=== PATIENT | female | born 1945 | race Caucasian/White ===

== ENCOUNTER 2018-11-29 12:46 | Inpatient (IN) | payer OTHER, SELFPAY ==
[2018-11-17 13:32] VITALS: BMI 26.4
[2018-11-29] VITALS (19 sets, daily range): BP systolic 82–134; BP diastolic 45–80; PULSE 70–91; RESP 12–20; TEMP 36.1–36.6; O2SAT 96–100; BMI 26.4; BMI 29.9
--- NOTE | 2018-11-29 | DI.RAD.S_ITS ---
PROCEDURE: XR PELVIS 1-2V INDICATIONS: INTEROPERATIVE RIGHT HIP TECHNIQUE: 1 view of the lower pelvis acquired. COMPARISON: None. FINDINGS: Bones: Patient is status post right hip arthroplasty, with hardware components in expected positions. The hip joint appears congruent. The visualized bony structures appear intact. Soft tissues: Overlying postoperative changes are noted. No suspicious soft tissue densities. IMPRESSION: Normal alignment after right total hip arthroplasty. Dictated by: Albert Garduno M.D. on 11/29/2018 at 17:02 Approved by: Albert Garduno M.D. on 11/29/2018 at 17:03
--- NOTE | 2018-11-29 | DI.RAD.S_ITS ---
PROCEDURE: XR PELVIS 1-2V INDICATIONS: POST OPERATIVE RIGHT HIP TECHNIQUE: 1 view of the lower pelvis acquired. COMPARISON: [facility], , XR PELVIS 1-2V, 11/29/2018, 14:37. FINDINGS: Bones: Patient is status post right hip arthroplasty, with hardware components in expected positions. The hip joint appears congruent. The visualized bony structures appear intact. Moderately severe osteoarthritis is present at the left hip. Soft tissues: Overlying postoperative changes are noted. No suspicious soft tissue densities. IMPRESSION: Normal anatomic alignment established after right total hip arthroplasty. Moderately severe left hip joint osteoarthritis. Dictated by: Albert Garduno M.D. on 11/29/2018 at 17:03 Approved by: Albert Garduno M.D. on 11/29/2018 at 17:04
--- NOTE | 2018-11-29 13:15 | PM.PREOP ---
Pre-operative Note Interval Note History & Physical reviewed/Exam performed by Physician: Yes Changes to H&P: No
[2018-11-29] MEDS: LACTATED RINGERS 1,000 ML 42 ML IV ×3 (13:18→16:51)
[2018-11-29] MEDS: ACETAMINOPHEN 325 MG TABLET 975 MG PO (13:18)
[2018-11-29] MEDS: PREGABALIN 75 MG CAPSULE PO (13:19)
[2018-11-29] MEDS: CELECOXIB 200 MG CAPSULE PO (13:19)
[2018-11-29] MEDS: CEFAZOLIN 1 GM VIAL IV (13:39)
[2018-11-29] MEDS: TRANEXAMIC ACID 1,000 MG VIAL 2 MG INJ ×2 (14:03→16:05)
--- NOTE | 2018-11-29 14:22 | SUR.OPER ---
Head on pillow. Supine on hanatable with bilateral legs secured in traction. right arm across chest, secured with tape over sheet Left arm at side on padded armoard at < 90 degrees
[2018-11-29] MEDS: BUPIVACAINE 0.25% W/ EPI VIAL 50 ML INJ (14:28)
--- NOTE | 2018-11-29 16:48 | P.OP_ITS ---
Operative Date/Time/Diagnoses Date of procedure: 11/29/18 Time of procedure: 16:44 Pre-op diagnosis: Right hip degenerative joint disease Post-op diagnosis: same Procedure & Clinicians Procedure: Right total hip arthroplasty, direct anterior approach (CPT code 80704 with geriatric assistant) Same procedure as scheduled: Yes Indications: Patient is an 73-year-old female with severe right hip DJD. The patient has pain with activities and at rest, limited ambulation and activity tolerance, difficulties with ADLs, and failure of conservative treatment. We have discussed the nature of condition, treatment options, risks and benefits, and patient elects to proceed with direct anterior approach total hip arthroplasty and gives informed consent. Surgeon: Ulisses Proctor Certified Pharmacy Technician: Blas Wallace Anesthesia Type: General and Spinal Operative Notes Closure Type: primary Specimen(s): none sent Prosthetic devices, grafts, tissues, transplants, or devices: Acetabulum: Boo and Nephew R3 acetabular component size 48 mm, 30 mm acetabular screw Femoral component: Boo and Nephew Anthology stem size 3 with standard offset Femoral head: 32 mm + 0 Oxinium Estimated Blood Loss (mL): 200 Blood products transfused: none Procedure in detail: Patient was brought to the operating room and after satisfactory induction of a spinal and general anesthetic as well as administration of intravenous antibiotics was placed supine on the [place] table. Both feet and ankles were wrapped and Webril and Coban and placed in the boots. The boots were then secured to the leg braswell and the lower end of the table was removed. Right hip area and lower extremity was then prepped and draped in the usual sterile fashion, and the 1st dose of tranexamic acid was administered. Skin incision made from just distal and lateral to the ASIS down distally toward the greater trochanter. This was carried sharply through the skin and subcutaneous tissue down to the fascia overlying the TFL. Fascia was then incised longitudinally and the muscle belly was stripped off the underside of the fascia and the intermuscular interval was entered using the finger for dissection. Retractors then placed the circumflex vessels were identified and cauterized. The capsule was then incised in a T-type fashion distally and retracted. Retractors then placed on the medial and lateral femoral neck and the cutting level identified with fluoroscopic assistance. Femoral neck cut then made and the femoral head was removed. Leg was positioned to minimize interference in the approach the acetabulum and acetabular retractors were placed. Acetabular labrum and lateral capsule were then excised and the acetabulum was sequentially reamed to 47 mm with fluoroscopic guidance. Once the reaming appeared satisfactory a 47 mm trial component was inserted and had excellent position and fixation. A 48 mm Boo and Nephew R3 acetabular component was selected and inserted under fluoroscopic guidance with satisfactory position and fixation achieved. A single superior posterior screw was then inserted, followed by placement of a non lipped liner. The foot of the table was then dropped and the leg was maximally externally rotated and adducted providing excellent position in visualization of the proximal femur. During this maneuver further posterior release was performed. Lateral femoral neck was entered using a box osteotome and canal finer was then placed followed by the initial ?chili pepper? broach. AP and lateral fluoroscopic images were taken with this in place to assure satisfactory position and alignment. Once this was confirmed sequential broaching to a 3 was performed with excellent position and fixation with the 3 broach. A trial reduction was performed yielding excellent leg length, offset, and size of the femoral implant. The broach was then removed and a size 3 anthology femoral component was inserted and impacted into position with excellent position and fixation achieved. Repeat fluoroscopic images confirmed satisfactory size and positioning as well as leg length. The hip was dislocated and the trial femoral head was replaced with a 32 mm +0 Oxinium head. The wound was copiously irrigated and the periarticular tissues were infiltrated with Marcaine. 2nd dose of tranexamic acid was administered. The fascia of the tensor fascia laureano was then repaired using a running 1 Vicryl. Subcutaneous layer closed with 2 O Vicryl and the skin closed with a running locking suture. Sterile dressings applied anesthetic terminated. Complications: none Condition: stable Disposition: PACU Plan for aftercare: Patient will be admitted to the acute care [facility], and anticipate discharge on postop day 1 or 2 with follow-up in office in 10-14 days. Outpatient physical therapy will be arranged and patient will continue to observe posterior hip precautions. Patient will continue use of postoperative Lovenox for 10 days postop.
--- NOTE | 2018-11-29 17:06 | SUR.PHASEI ---
pt awake and alert. Denies any complaints. dressing dry and intact. Blood pressure remains in the 90/47. pt states she feels okay and currently denies nausea.
--- NOTE | 2018-11-29 17:44 | SUR.PHASEI ---
pt's blood pressure was 122/65 when pt went to floor.
[2018-11-29] MEDS: LACTATED RINGERS 1,000 ML 125 ML IV (18:06)
[2018-11-29] MEDS: ONDANSETRON 4 MG/2 ML INJ IV (18:06)
[2018-11-29] MEDS: METOCLOPRAMIDE HCL 10 MG TABLET PO (18:31)
[2018-11-29] MEDS: HYDROCODONE/ACET 5/325 TABLET 1 TAB PO (19:00)
--- NOTE | 2018-11-29 22:52 | PC.NURSE ---
Addendum entered by Aysha Ye R.N. 11/29/18 23:33: Able to void 50 ml urine, said it only came when I sneezed. Transferred back to bed. Bladder scan = 354 ml. Report given to Emeli MCDONALD RN and she is aware of attempt to void & bladder scan result. Original Note: Post-op notes: Madiha brought from PACU around 1730, via bed, by DELI CUTTER SLICER's. Pt awake, oriented, nauseated and had small amt of emesis immediately after transfered. Linens changed, IV zofran given. Pt reported nausea relieved for a little while but then started having dry heaves. PO Reglan given, and since then patient has had no further nausea or emesis. Did report right hip/thigh pain 5/10 and medicated with 1 tab [place], given with pudding cup to help prevent further nausea. Since then patient has been watching TV and dozing. R hip with aquacel CDI. She does report leg feels a little numb still but wiggling toes, actively doing foot pumps and has strong pedal pulses. Wearing margo calf SCD's. VS are stable, BP on the low side but stable. 2230: Face pale, she did report lightheadedness when first transferred her to BS, good sensation & mvmt of RLE. No void since before surgery. Just now we transferred her to [facility] so she could attempt void. If no void will perform bladder scan. Full linen change done.
[2018-11-29] MEDS: CEFAZOLIN 2 GM/100 ML FROZ.PIGGY IV (23:10)
[2018-11-30] VITALS (8 sets, daily range): BP systolic 66–116; BP diastolic 34–67; PULSE 83–123; RESP 16–20; TEMP 36.1–38.4; O2SAT 92–97
[2018-11-30] MEDS: hydrOXYzine pamoate 25 MG CAPSULE PO (00:25)
[2018-11-30] MEDS: HYDROCODONE/ACET 5/325 TABLET 1 TAB PO ×4 (00:25→18:11)
[2018-11-30] MEDS: LACTATED RINGERS 1,000 ML 125 ML IV ×2 (04:21→19:20)
[2018-11-30 05:59] LABS: Hematocrit 26.3 % (36-46); Hemoglobin 8.9 g/dL (12.0-16.0)
--- NOTE | 2018-11-30 07:26 | PM.PNPO.1 ---
Subjective Date Patient Seen: 11/30/18 Interval history: Patient seen bed side status post right anterior total hip arthroplasty with Dr. Proctor on 11/29/2018. Patient is postop day 1. Dr. Proctor saw her this morning and patient was a little lightheaded. Currently, she is feeling better. She did have 2 episodes of orthostatic hypotension today. Fluids are currently running. Exam Vital Signs (past 8 hours): - 11/30/18 00:28 Temperature 97 F L Pulse Rate 83 Respiratory Rate 16 Blood Pressure 97/67 Pulse Oximetry 96 Oxygen Delivery Method Room Air Narrative Exam Narrative: Well-developed well-nourished no acute distress alert oriented x3. Dressing clean dry and intact. Neurovascularly intact bilateral lower extremities. Objective Labs Result Diagrams: 11/30/18 15:28 Labs: Laboratory Results - last 24 hr 11/30/18 05:06 Hgb 8.9 L Hct 26.3 L Assessment & Plan Post-op Postoperative Procedures Operation Date: 11/29/18 14:15 Actual Procedures Side Surgeon p Total Hip Arthroplasty-Anterior Right Ulisses Proctor MD 1. POD #1 s/p above procedure-finishing bolus, probable d/c tomorrow if pressure/labs stable and works well with therapy. 2. Postoperative anemia due to acute blood loss-continue fluids, ferrous sulfate and vitamin c. Labs appear stable at this time. Recheck h/h in AM.. Quality VTE Deep Vein Thrombosis/Pulmonary Embolism Present on Admission: No
[2018-11-30] MEDS: CEFAZOLIN 2 GM/100 ML FROZ.PIGGY IV (07:32)
[2018-11-30] MEDS: SODIUM CHLORIDE 0.9% 1,000 ML 100 ML IV (07:32)
--- NOTE | 2018-11-30 07:52 | PC.NURSE ---
Addendum entered by Bernadine Galvan R.N. 11/30/18 15:41: received a call back from dr Proctor, orders for stat H&H, give 250ml NS bolus over 1hour after labs drawn, and call Dr Proctor back with H&H results. Orders placed and Evening shift RN passed on. Original Note: Addendum entered by Bernadine Galvan R.N. 11/30/18 14:39: pt worked with PT and sitting b/p 116/49 standing 66/34 and laying back 110/58, pt reporst she did feel dizzy but that it is not as bad a yesterday, denies any further dizziness while sitting up in chair. paged dr proctor at 1428 awaiting call back Original Note: Addendum entered by Bernadine Galvan R.N. 11/30/18 13:54: pt got up and voided on BSC reports slight dizziness but continues to improve up to chair at bed visiting with family. Original Note: Addendum entered by Bernadine Galvan R.N. 11/30/18 11:51: pt up to BSC with therapy, noted to feel slightly dizzy when sitting up was assisted back to bed and b/p 79/44 p 126 states she felt better then she did when she got up yesterday. after a few min. laying flat b/p 102/48 p 114 Original Note: Day shift Pt is a&o able to make needs known. c/o pain to right hip 4/10 medicated per emar. Aqucel dressing to right hip is CDI. Call light within reach.
[2018-11-30] MEDS: ASCORBIC ACID 500 MG TABLET PO (09:46)
[2018-11-30] MEDS: ENOXAPARIN 40 MG/0.4 ML SYRINGE SUBCUT (09:46)
[2018-11-30] MEDS: FERROUS SULFATE 325 MG TABLET PO (09:46)
--- NOTE | 2018-11-30 10:25 | PT.IIE ---
Current Diagnoses Unilateral primary osteoarthritis, right hip (11/29/18) Surgery Performed Operation Date: 11/29/18 14:15 Actual Procedures p Total Hip Arthroplasty-Anterior(Right) - Ulisses Proctor MD Surgical History (Last Updated 11/17/18 @ 14:09 by Stephanie Carroll, RN) History of arthroscopy of both knees (Acute) History of colonoscopy (Acute) Medical History (Last Updated 11/17/18 @ 13:46 by Stephanie Carroll RN) HTN (hypertension) (Acute) Hypercholesterolemia (Acute) Physical Therapy Inpatient Evaluation/Re-Eval M1 PT/OT-IP Prior Functional Status Start: 11/30/18 12:51 Freq: NEEDED Status: Active Protocol: Document 11/30/18 10:25 AB (Rec: 11/30/18 13:08 AB [id number]) Medical Review Prior Functional Status Medical History Reviewed Yes Communication able to make needs known Mobility and Gait pt stated that she is independent with all mobilities and ambulation without AD Social History Household Members none Living Arrangements House Number of Floors (Floors) Two Floors Number of Stairs To Enter/Railing? has 2 steps without rails to enter has 10 steps with R rail ascending to 2nd level bedroom Home Environment Walk in Shower Home Equipment Straight Cane Shower Seat with Backrest Additional Social History Comment pt has a standard walker pt stated that her nurse friend will stay with her for ~ 3 days to help her and afterwards, her daughter/ family will come in to stay and visit her. M2 PT-IP Current Condition Start: 11/30/18 12:51 Freq: NEEDED Status: Active Protocol: Document 11/30/18 10:25 AB (Rec: 11/30/18 13:08 AB [email or web address]) Physical Therapy Current Condition Current Condition Evaluation Date 11/30/18 Treatment Diagnosis s/p R ANDREI anterior approach; difficulty in walking Onset Date 11/29/18 Precautions Anterior Hip Precautions No Hip Extension No Hip External Rotation Other Precautions falls Weight Bearing Status Weight Bearing Status Weight Bear as Tolerated M3 PT-IP Subjective Start: 11/30/18 12:51 Freq: NEEDED Status: Active Protocol: Document 11/30/18 10:25 AB (Rec: 11/30/18 13:08 AB [email or web address]) Subjective Physical Therapy Visit Type Type Initial Evaluation Visit Start Time 10:25 Visit Stop Time 11:16 Total Visit Minutes 51 Number of DAYCARE ASSISTANT Visits 0 Physical Therapy Visit Comments Patient Comments pt agreeable to do PT Therapy Pain Assessment Pain When Pain Assessed At Rest Pain Present Pain Present Pain Reported Location Right Hip Intensity 3 Scale Used Numeric (1 - 10) Pain Management Techniques Timing of Activity with Medications M4 PT-IP Mobility and Gait Start: 11/30/18 12:51 Freq: NEEDED Status: Active Protocol: Document 11/30/18 10:25 AB (Rec: 11/30/18 13:08 [email or web address]) PT-Bed Mobility Assessment Supine to Sit Supine to Sit Maximum Assistance 1 Person Assistance Sit to Supine Sit to Supine Maximum Assistance 1 Person Assistance PT-Transfer Assessment Sit to and From Stand Sit to and from Stand Moderate Assistance Maximum Assistance 1 Person Assistance Equipment Transfer Assistive Device Gait Belt Orthotic/Prosthetic Devices or Brace: No Transfers Transfer Destination Bedside Commode Transfer Technique Stand Step Pivot Transfer Ability Level of Assist Moderate Assistance 1 Person Assistance Comments Mobility Comments BP monitored: supine prior to mobilization: 107/75. pt completed supine to sit max A and max cues. BP sitting on EOB: 76/37. BP checed again: 91/53. pt with seated rest break and BP checked again: 96 /52. pt requested to use the toilet. pt completed sit to stand mod to max A and max cues with 3 attempts needed to complete tasks. pt completed stand step transfer to bedside commode using FWW mod A and max cues. BP checked again sitting on commode: 79/ 44. pt assisted back to bed requiring mod A for transfer using FWW. pt required max A and max cues for bed mobility sit to supine. BP in supine: 102/48. nurse aware. Gait Assessment Comments Gait Comments was able to take steps during transfer PT-Balance Assessment Sitting Balance and Reactions Static Sitting Balance Ability Good Dynamic Sitting Balance Ability Good Standing Balance and Reactions Static Standing Balance Ability Fair Dynamic Standing Balance Ability Fair Device Used FWW M5 PT-IP Objective Assessments Start: 11/30/18 12:51 Freq: NEEDED Status: Active Protocol: Document 11/30/18 10:25 AB (Rec: 11/30/18 13:08 [email or web address]) Orientation Orientation/Cognition Level of Alertness Alert Orientation Name Age Birthday Month Date Year Day of Week Place Situation Safety Awareness Decreased Safety Awareness Memory Description Short Term Impaired Custodial Impaired Gross Range of Motion Lower Extremity ROM Assessment Right Impaired Strength Lower Extremity Strength Assessment Right Impaired Knee 3-/5 M6 PT-IP Treatment Start: 11/30/18 12:51 Freq: NEEDED Status: Active Protocol: Document 11/30/18 10:25 AB (Rec: 11/30/18 13:08 AB [email or web address]) Physical Therapy Treatment Exercises Exercises Heel Slides Education Education Provided Precautions Weight Bearing Status Post-Op Packet Safety M7 PT-IP Assessment and Plan Start: 11/30/18 12:51 Freq: NEEDED Status: Active Protocol: Document 11/30/18 10:25 AB (Rec: 11/30/18 13:08 AB [email or web address]) PT Summary Assessment and Plan Potential Rehabilitation Potential Fair Summary Impairments Pain ROM Strength Balance Coordination Sensation Tone Cognition Bed Mobility Transfers Gait Activity Tolerance Assessment Summary pt was not able to tolerate much activity this morning with decrease in BP noted with upright activities. will continue to assess. Goals Bed Mobility Goal Standby Assistance Transfer Goal Standby Assistance Front Wheeled Walker Gait Goal Standby Assistance Front Wheel Walker Gait Distance 200 Other Goals up/down 2 steps without rails SBA up/down 10 steps with R rail ascending SBA Treatment Plan Physical Therapy Treatment Plan Bed Mobility Training Transfer Training Gait Training Therapeutic Exercise Balance Retraining Post Op Education Discharge Planning Hot or Cold Pack Neuromuscular Re-ed Coordination Retraining Manual Therapy Recommendations To Nursing Amount of Assist Needed 1 Person Assist Discharge Recommendations PT Discharge Recommendations Home with Assistance SNF Rehab Outpatient PT Other Discharge Recommendations d/c plan dependin on progress: SNF vs home with assist Equipment Needed for Home Before FWW Discharge
--- NOTE | 2018-11-30 11:25 | CM.DANOTE ---
DCP/Assessment: Reviewed chart. Patient is a 73jyr old female admitted to [facility] for right ANDREI performed on 11-29-[address] Proctor. PCP not listed. Primary payor is 1)[facility]. Met with patient explained CM/SW role. Patient alert and oriented at time of visit. Patient reports that she plans to go home when medically stable. Patient reports that she has all needed DME. Therapy evaluation pending. Initially, patient thought she would discharge today however, due to low BP it was decided by Ortho team that patient would remain hospitalized tonight. Patient aware and agreeable. Patient reports that she resides alone but that she has friend/Rupal coming to help when she goes home. Patient's daughter/Aysha will also be available if needed. At this time anticipate patient to go home when medically stable. CM team to follow closely if needs arise. P: Home hopefully tomorrow 12-01-18. DEB Art Discharge Planning/Care Management CM Discharge Assessment Start: 11/30/18 11:23 Freq: Status: Active Protocol: Document 11/30/18 11:24 KJS (Rec: 11/30/18 11:25 KJS [id number]) Discharge Planning Assessment Assigned Rail Maintenance Worker DEB Art Contact Information Aysha Juan (daughter) [phone] Advance Directives? Yes Advance Directives on File Yes: brought in today History Provided By Patient Medical Record Has Patient been admitted in last 30 No days? Prior Living Arrangements House Household Members none Type of transporation used prior to Drives own vehicle admit Independent with ADL's Yes Is patient alert and oriented? Yes Caregiver for Another No DME Already Rented / Owned FWW / Walker Patient/Family Preference OP PT Therapy Barriers to Discharge No Discharge Plan Home Transportation Arrangement Family to provide transport when patient medically stable. Referrals Initiated None needed Whiteboard Updated in Patient Room with Yes name and ext. # of Rail Maintenance Worker Review Status In Process Please Provide Date Initial DC 11/30/18 Assessment Was Performed Next Review Type Continued Stay Review Pre-Anesthesia Assessment Start: 11/17/18 13:32 Freq: Status: Complete Protocol: Document 11/17/18 13:32 CAB (Rec: 11/17/18 14:24 CAB [id number]) Pre-Anesthesia Assessment Patient Information Reviewed Via Phone Assessment Assessment Completed With Patient Diagnostic Results BMP/CMP CBC EKG Primary Care Provider Reagan Benitez Seen Specialist in Last 12 Months Yes Specialist Seen Opthamologist/Technical Support Associate Orthopedist Primary Language Japanese White Shoe Examiner Required No Height 154.94 cm Weight 63.503 kg Body Mass Index (BMI) 26.4 Hearing Ability Normal Visual Assist Magnifying Glass Dentition Type Teeth, Natural Present Barriers to Learning None Other Aids No Hx Anesthesia Reactions No Hx Family Anesthesia Reaction No Hx Malignant Hyperthermia No Hx Blood Transfusions No Anesthesia Review Requested No Client Technologies Specialist No alcohol intake current alcohol intake frequency a few times a month Smoking Status Never smoker Substance Use Type does not use Pain Present Pain Reported Musculoskeletal Symptoms Abnormal Gait Difficulty Walking Joint Pain History of Falling (Recent or History of No ) Patient is completely paralyzed or No completely immobile Mental Status Oriented to own ability Is patient on oxygen? No Does patient have SUAREZ/SOB No Hx Sleep Apnea No Currently Taking a Beta Darcie Yes: Atenolol Can You Climb a Flight of Stairs Without Yes SOB Hx Chest Pain No Hx SOB No Hx Syncope or Dizziness No Anti-Coagulant Therapy No Has a Bookmaker Map No Cardiac Testing No Hx Pacemaker/ICD No Pacemaker Rep Required? No Cardiac Clearance Received Not Applicable Diet Type At Home Regular dysphagia No Bladder Pattern Nocturia Urinary Catheter Present No Hx Urinary Self Catheterization No Diabetes No Patient No Lactating No Hx Drug Resistant Organism No Presence of External or Internal Medical No Devices Have you traveled outside the [facility] States in the last 30 days? Marital Status / Lives With none Prior Living Arrangements House Number of Floors (Floors) 3 or More Floors Support System Child/Children Friend(s) Does the Patient Have Assistance After Yes Surgery Patient Discharge Plan Description Return Home Feels Safe in Current Environment Yes Been Physically Hurt or Threatened By a No Person in Current Environment Do you have thoughts of harming yourself None or others? Are you currently considering suicide? No Do you have a plan to hurt yourself or No Plan others? Do You Have Any Spiritual Beliefs That No May Affect Your HC Choices? Do You Have Any Cultural Practices That No May Affect Your HC Choices? Comment Presby Who Can We Speak to About Patient's Care Family, friends Identifying Code for Release of Patient Declines to issue Information Health Care Proxy/Next of Kin Aysha (daughter) Health Care Proxy Phone Number Pt will update dos Emergency Contact Name Mahnaz (daughter) Emergency Contact Phone Number Pt will update dos Advance Directives? Yes Advance Directives on File No Requested Patient Bring Advanced Yes Directives DOS Power of Shop Tailor Pt unsure PAC Instructions Do not shave/clip surgical site Durable medical equipment Medications to take/avoid Nasal antibiotic No ETOH/petroleum product on skin DOS NPO Post-op transportation Pre-surgical wash Sturdy shoes/comfortable clothes Do not bring valuables and remove jewelry
--- NOTE | 2018-11-30 15:02 | PT.IPTN ---
Current Diagnoses Unilateral primary osteoarthritis, right hip (11/29/18) Surgery Performed Operation Date: 11/29/18 14:15 Actual Procedures p Total Hip Arthroplasty-Anterior(Right) - Ulisses Proctor MD Physical Therapy Treatment Note M2 PT-IP Current Condition Start: 11/30/18 12:51 Freq: NEEDED Status: Active Protocol: Document 11/30/18 10:25 AB (Rec: 11/30/18 13:08 AB [id number]) Physical Therapy Current Condition Current Condition Evaluation Date 11/30/18 Treatment Diagnosis s/p R ANDREI anterior approach; difficulty in walking Onset Date 11/29/18 Precautions Anterior Hip Precautions No Hip Extension No Hip External Rotation Other Precautions falls Weight Bearing Status Weight Bearing Status Weight Bear as Tolerated M3 PT-IP Subjective Start: 11/30/18 12:51 Freq: NEEDED Status: Active Protocol: Document 11/30/18 13:52 CLB (Rec: 11/30/18 15:02 CLB [id number]) Subjective Physical Therapy Visit Type Type Treatment Note Visit Start Time 13:52 Visit Stop Time 14:17 Total Visit Minutes 25 Number of 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 Visits 1 Physical Therapy Visit Comments Patient Comments pt agreeable to do PT Patient Goals walk Therapy Pain Assessment Pain When Pain Assessed At Rest Pain Present Pain Present Pain Reported Location Right Hip Intensity 3 Scale Used Numeric (1 - 10) Pain Management Techniques Timing of Activity with Medications M4 PT-IP Mobility and Gait Start: 11/30/18 12:51 Freq: NEEDED Status: Active Protocol: Document 11/30/18 13:52 CLB (Rec: 11/30/18 15:02 CLB [id number]) PT-Transfer Assessment Sit to and From Stand Sit to and from Stand Minimal Assistance 1 Person Assistance Use of Upper Extremities Equipment Transfer Assistive Device Gait Belt Front Wheeled Walker Transfers Transfer Destination Chair Transfer Ability Level of Assist Minimal Assistance 1 Person Assistance Use of Upper Extremities Comments Mobility Comments BP monitored: reclined in chair 116/49 with no c/o dizziness, standing 66/34, pt returned to reclined position, BP in supine 110/58. RN notified. 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 Impaired Gross Range of Motion Lower Extremity ROM Assessment Right Impaired Strength Lower Extremity Strength Assessment Right Impaired Knee 3-/5 M6 PT-IP Treatment Start: 11/30/18 12:51 Freq: NEEDED Status: Active Protocol: Document 11/30/18 13:52 CLB (Rec: 11/30/18 15:02 CLB [id number]) Physical Therapy Treatment Exercises Exercises Ankle Pumps Gluteal Sets Quad Sets Heel Slides Education Education Provided Precautions Weight Bearing Status Post-Op Packet Safety M7 PT-IP Assessment and Plan Start: 11/30/18 12:51 Freq: NEEDED Status: Active Protocol: Document 11/30/18 13:52 CLB (Rec: 11/30/18 15:02 CLB [id number]) PT Summary Assessment and Plan Summary Impairments Pain ROM Strength Balance Coordination Sensation Tone Cognition Bed Mobility Transfers Gait Activity Tolerance Assessment Summary Pt continues to have have drop in BP in standing and is unable to ambulate at this time. Goals Bed Mobility Goal Standby Assistance Transfer Goal Standby Assistance Front Wheeled Walker Gait Goal Standby Assistance Front Wheel Walker Gait Distance 200 Other Goals up/down 2 steps without rails SBA up/down 10 steps with R rail ascending SBA Days to Meet Goals 5 Frequency of Treatment Frequency Of Treatment Twice a Day Treatment Plan Physical Therapy Treatment Plan Bed Mobility Training Transfer Training Gait Training Therapeutic Exercise Balance Retraining Post Op Education Discharge Planning Hot or Cold Pack Neuromuscular Re-ed Coordination Retraining Manual Therapy Recommendations To Nursing Amount of Assist Needed 1 Person Assist Discharge Recommendations PT Discharge Recommendations Home with Assistance Home Health SNF Rehab Outpatient PT Other Discharge Recommendations Home with assist and OPPT vs HH vs SNF Rehab daughter stated that HH may be a good option for pt due to living alone. Equipment Needed for Home Before FWW Discharge
[2018-11-30 15:37] LABS: Hematocrit 28.3 % (36-46); Hemoglobin 9.2 g/dL (12.0-16.0)
--- NOTE | 2018-11-30 16:14 | P.PN_ITS ---
Subjective Date Patient Seen: 11/30/18 Interval history: Patient seen bed side status post right anterior total hip arthroplasty with Dr. Proctor on 11/29/2018. Patient is postop day 1. Dr. Proctor saw her this morning and patient was a little lightheaded. Currently, she is feeling better. She did have 2 episodes of orthostatic hypotension today. Fluids are currently running. Exam Vital Signs (past 8 hours): - 11/30/18 00:28 Temperature 97 F L Pulse Rate 83 Respiratory Rate 16 Blood Pressure 97/67 Pulse Oximetry 96 Oxygen Delivery Method Room Air Narrative Exam Narrative: Well-developed well-nourished no acute distress alert oriented x3. Dressing clean dry and intact. Neurovascularly intact bilateral lower extremities. Objective Labs Result Diagrams: 11/30/18 15:28 Labs: Laboratory Results - last 24 hr 11/30/18 05:06 Hgb 8.9 L Hct 26.3 L Assessment & Plan Post-op Postoperative Procedures Operation Date: 11/29/18 14:15 Actual Procedures Side Surgeon p Total Hip Arthroplasty-Anterior Right Ulisses Proctor MD 1. POD #1 s/p above procedure-finishing bolus, probable d/c tomorrow if pres sure/labs stable and works well with therapy. 2. Postoperative anemia due to acute blood loss-continue fluids, ferrous sulfate and vitamin c. Labs appear stable at this time. Recheck h/h in AM.. Quality VTE Deep Vein Thrombosis/Pulmonary Embolism Present on Admission: No
[2018-11-30] MEDS: SODIUM CHLORIDE 0.9% 250 ML IV (16:18)
--- NOTE | 2018-11-30 22:08 | PM.CN ---
History of Present Illness Date Patient Seen: 11/30/18 Time Patient Seen: 21:45 Chief complaint: [id number] Right Total Hip ArthoplastyCOPAY $720.00 Reason for consult: Orthostatic hypotension Narrative: The patient is a 73 year old female with PMH of HTN, dyslipidemia, and osteoarthritis. On 11/29/2018 patient underwent an elective right hip arthroplasty for OA of right hip and pain / debility no longer amenable to non-invasive interventions. POD #1. Early in day patient was getting out of bed in found herself to feel lightheaded. Associated symptoms include visual blurring, generalized weakness, nausea and an episode of vomiting (earlier in the day). At time of the interview patient reported feeling well and free of dizziness, lightheadedness, nausea or vomiting. Also, has not experienced headache, chest pain, dizziness, palpitations, abdominal pain, dysuria, and blood loss in urine or stool. Vital signs obtain at that time of initial complaints with findings consistent for orthostasis. Consequently, patient received a 250 ml IVF bolus. She was started On maintenance IVF. [facility] Medical History HTN (hypertension) (Acute) Hypercholesterolemia (Acute) Surgical History History of arthroscopy of both knees (Acute) History of colonoscopy (Acute) Social History household members: none Smoking Status: Never smoker alcohol intake: current Social History household members: none Smoking Status: Never smoker alcohol intake: current Meds Home Medications Medication Instructions Recorded Confirmed Type atenolol 25 mg PO BEDTIME 11/17/18 11/29/18 History atorvastatin 10 mg PO BEDTIME 11/17/18 11/29/18 History Allergies Allergy/AdvReac Type Severity Reaction Status Date / Time No Known Drug Allergies Allergy Verified 11/29/18 13:20 Review of Systems Review of Systems All systems reviewed & are unremarkable except as noted in HPI and below Exam Vital Signs (past 8 hours): - 11/30/18 14:27 11/30/18 14:28 11/30/18 14:53 Temperature Pulse Rate 123 H Respiratory Rate 16 Blood Pressure Blood Pressure [Orthostatic Sitting] 116/49 L Blood Pressure [Orthostatic Standing] 66/34 L 110/58 L Pulse Oximetry 92 11/30/18 15:32 11/30/18 20:22 Temperature 99.2 F 101.2 F H Pulse Rate 116 H 118 H Respiratory Rate 20 17 Blood Pressure 114/48 L 105/57 L Blood Pressure [Orthostatic Sitting] Blood Pressure [Orthostatic Standing] Pulse Oximetry 94 92 Oxygen Delivery Method Room Air Narrative Exam Narrative: Constitutional: NAD Neurologic: AOx3, no focal neurological deficits, GCS 15 Head: NC, AT Eyes: pupils equal, round and reactive; extraocular movements intact Ears: external ears normal, Nose: external nose normal, no epistaxis Throat: DRY MM, oropharynx w/o exudate Neck: no masses, lymphadenopathy, or JVD Chest / Respiratory: equal chest rise, diminished bases, no tachypnea or dyspnea, on room air Heart / CV: S1S2, no murmur, tachycardic HR 122 apical pulse Abdomen / GI: round, NT, ND, hypoactive BS, no organomegaly : + suprapubic tenderness Peripheral / Vascular: warm to touch, DP and PT pulses palpable right hip tender to touch, + edema 2+, early changes suggestive of bruising Musc: diminished ROM at right hip Skin: no overt ecchymosis, + facial flushing, pale skin tone Objective Labs Result Diagrams: 12/01/18 05:50 11/30/18 22:30 Labs: Laboratory Results - last 24 hr 11/30/18 11/30/18 05:06 15:28 Hgb 8.9 L 9.2 L Hct 26.3 L 28.3 L Assessment & Plan Assessment & Plan narrative: orthostatic hypotension, new onset, symptomatic 2/2 to suspected acute blood loss / anemia vs volume depletion vs medication induced DDx: autonomic failure vs sepsis / acute infectious process vs arrhythmia - EKG - CBC, CMP, Mg results reviewed: Na 136, Cl 104, K 3.7, Mg 1.8, Ca 7.8, BUN 20, CR 0.9 BUN/CRE ratio 22 - Check orthostatic BPs QShift x3, empty bladder before testing (preferred) - 1L NS bolus, then continue current maintenance IVF - I/O monitoring, check post void residual - Elastic / thigh high stockings to reduce venous pooling - Treat fever, minimize opiate use - Supportive care Fever, new onset POD #1, mild temp elevation to 101.2F - appropriate physiologic response of post operative state - no s/s of SIRS or sepsis, continue to monitor for s/s of infection - tylenol 650 mg Q6H prn Hypovolemia - Give 1L NS bolus, then resume maintenance IVF Acute anemia, normocytic 2/2 acute blood loss, estimated surgical blood loss 200 ml No active s/s of blood loss - Hgb 8.3 - On an iron supplement Acute post-operative pain received multiple medications with STRIPE MARKER sequela in the past 24 hr - consider Toradol or Tylenol 975 Q8H - hold off or minimize use of opioids until orthostasis resolves Essential HTN, controlled chronic condition 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
--- NOTE | 2018-11-30 22:11 | P.CONS_ITS ---
History of Present Illness Date Patient Seen: 11/30/18 Time Patient Seen: 21:45 Chief complaint: [id number] Right Total Hip ArthoplastyCOPAY $720.00 Reason for consult: Orthostatic hypotension Narrative: The patient is a 73 year old female with PMH of HTN, dy slipidemia, and osteoarthritis. On 11/29/2018 patient underwent an elective right hip arthroplasty for OA of right hip and pain / debility no longer amenable to non-invasive interventions. POD #1. Early in day patient was getting out of bed in found herself to feel lightheaded. Associated symptoms include visual blurring, generalized weakness, nausea and an episode of vomiting (earlier in the day). At time of the interview patient reported feeling well and free of dizziness, lightheadedness, nausea or vomiting. Also, has not experienced headache, chest pain, dizziness, palpitations, abdominal pain, dysuria, and blood loss in urine or stool. Vital signs obtain at that time of initial complaints with findings consistent for orthostasis. Consequently, patient received a 250 ml IVF bolus. She was started On maintenance IVF. [facility] Medical History HTN (hypertension) (Acute) Hypercholesterolemia (Acute) Surgical History History of arthroscopy of both knees (Acute) History of colonoscopy (Acute) Social History household members: none Smoking Status: Never smoker alcohol intake: current Social History household members: none Smoking Status: Never smoker alcohol intake: current Meds Home Medications Medication Instructions Recorded Confirmed Type atenolol 25 mg PO BEDTIME 11/17/18 11/29/18 History atorvastatin 10 mg PO BEDTIME 11/17/18 11/29/18 History Allergies Allergy/AdvReac Type Severity Reaction Status Date / Time No Known Drug Allergies Allergy Verified 11/29/18 13:20 Review of Systems Review of Systems All systems reviewed & are unremarkable except as noted in HPI and below Exam Vital Signs (past 8 hours): - 11/30/18 14:27 11/30/18 14:28 11/30/18 14:53 Temperature Pulse Rate 123 H Respiratory Rate 16 Blood Pressure Blood Pressure [Orthostatic Sitting] 116/49 L Blood Pressure [Orthostatic Standing] 66/34 L 110/58 L Pulse Oximetry 92 11/30/18 15:32 11/30/18 20:22 Temperature 99.2 F 101.2 F H Pulse Rate 116 H 118 H Respiratory Rate 20 17 Blood Pressure 114/48 L 105/57 L Blood Pressure [Orthostatic Sitting] Blood Pressure [Orthostatic Standing] Pulse Oximetry 94 92 Oxygen Delivery Method Room Air Narrative Exam Narrative: Constitutional: NAD Neurologic: AOx3, no focal neurological deficits, GCS 15 Head: NC, AT Eyes: pupils equal, round and reactive; extraocular movements intact Ears: external ears normal, Nose: external nose normal, no epistaxis Throat: DRY MM, oropharynx w/o exudate Neck: no masses, lymphadenopathy, or JVD Chest / Respiratory: equal chest rise, diminished bases, no tachypnea or dyspnea, on room air Heart / CV: S1S2, no murmur, tachycardic HR 122 apical pulse Abdomen / GI: round, NT, ND, hypoactive BS, no organomegaly : + suprapubic tenderness Peripheral / Vascular: warm to touch, DP and PT pulses palpable right hip tender to touch, + edema 2+, early changes suggestive of bruising Musc: diminished ROM at right hip Skin: no overt ecchymosis, + facial flushing, pale skin tone Objective Labs Result Diagrams: 12/01/18 05:50 11/30/18 22:30 Labs: Laboratory Results - last 24 hr 11/30/18 11/30/18 05:06 15:28 Hgb 8.9 L 9.2 L Hct 26.3 L 28.3 L Assessment & Plan Assessment & Plan narrative: orthostatic hypotension, new onset, symptomatic 2/2 to suspected acute blood loss / anemia vs volume depletion vs medication induced DDx: autonomic failure vs sepsis / acute infectious process vs arrhythmia - EKG - CBC, CMP, Mg results reviewed: Na 136, Cl 104, K 3.7, Mg 1.8, Ca 7.8, BUN 20, CR 0.9 BUN/CRE ratio 22 - Check orthostatic BPs QShift x3, empty bladder before testing (preferred) - 1L NS bolus, then continue current maintenance IVF - I/O monitoring, check post void residual - Elastic / thigh high stockings to reduce venous pooling - Treat fever, minimize opiate use - Supportive care Fever, new onset POD #1, mild temp elevation to 101.2F - appropriate physiologic response of post operative state - no s/s of SIRS or sepsis, continue to monitor for s/s of infection - tylenol 650 mg Q6H prn Hypovolemia - Give 1L NS bolus, then resume maintenance IVF Acute anemia, normocytic 2/2 acute blood loss, estimated surgical blood loss 200 ml No active s/s of blood loss - Hgb 8.3 - On an iron supplement Acute post-operative pain received multiple medications with ADMISSION SPECIALIST sequela in the past 24 hr - consider Toradol or Tylenol 975 Q8H - hold off or minimize use of opioids until orthostasis resolves Essential HTN, controlled chronic condition prior to admission 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
[2018-11-30] MEDS: ACETAMINOPHEN 325 MG TABLET 650 MG PO (22:14)
[2018-11-30 22:44] LABS: Add Manual Diff / Slide Review NO; Basophils Absolute Auto 0 /uL (0-100); Basophils Percent Auto 0.5 % (0-2); Eosinophils Absolute Auto 0 /uL (0-450); Eosinophils Percent Auto 0.4 % (2-4); Hematocrit 25.3 % (36-46); Hemoglobin 8.3 g/dL (12.0-16.0); Lymphocytes Absolute Auto 1000 /uL (1100-4500); Lymphocytes Percent Auto 11.3 % (25-40); Mean Corpuscular HGB Conc 32.9 % (30-36); Mean Corpuscular Hemoglobin 29.8 PG (26-34); Mean Corpuscular Volume 90.6 fL (80-100); Monocytes Absolute Auto 1100 /uL (0-900); Monocytes Percent Auto 11.8 % (3-14); Neutrophils Absolute Auto 7000 /uL (1500-7000); Platelet Count 164 X10^3/uL (150-400); Red Blood Cell Count 2.79 X10^6/uL (4.0-5.2); Red Cell Distribution Width 13.4 % (11.6-14.8); White Blood Cell Count 9.2 X10^3/uL (4.5-11.0)
[2018-11-30 22:51] LABS: Alanine Aminotransferase 27 IU/L (9-52); Albumin 2.6 g/dL (3.5-5.0); Albumin Globulin Ratio 1.1 (1.0-2.8); Alkaline Phosphatase 37 U/L (38-126); Aspartate Aminotransferase 31 IU/L (14-36); BUN Creatinine Ratio 22.2 (6-22); Bilirubin Total 0.3 mg/dL (0.2-1.3); Blood Urea Nitrogen 20 mg/dL (7-17); Calcium 7.8 mg/dL (8.4-10.2); Carbon Dioxide 27 mmol/L (22-32); Chloride 104 mmol/L (98-107); Estimated Glomerular Filt Rate > 60.0 mL/min (>60); Globulin 2.4 g/dL (1.7-4.1); Glucose 113 mg/dL (80-110); HEMOLYSIS < 15 (0-50); Magnesium 1.8 mg/dL (1.6-2.3); Potassium 3.7 mmol/L (3.4-5.1); Sodium 136 mmol/L (137-145)
--- NOTE | 2018-11-30 23:07 | PC.NURSE ---
Evening Shift Notem Pt tolerating stand and pivot activity to chair, bedside commode and bed. No episodes of dizziness or hypotension. During night vitals pt had a temp 101.2, increasing HR at 122, BP 105/57. Dr Esthela french MD asked to speak to hospitalist to consult. New orders per hospitalist. Orders carried out and awaiting results. Will update third shift lieutenant RN, currently pt expresses feeling ok, VSS, will continue to monitor.
[2018-12-01] VITALS (10 sets, daily range): BP systolic 76–138; BP diastolic 46–63; PULSE 99–129; RESP 16–20; TEMP 36.6–37.6; O2SAT 91–97
--- NOTE | 2018-12-01 02:12 | PC.NURSE ---
pt is reporting decreased pain in hip, dressing is CDI. Able to sit and stand at bedside. Orthostatic hypotensive, but asymptomatic. Standing BP at 0130 76/46 and tachy with a HR of 130. When laying in bed BP is 113/80 HR 112. pt voided 350 in BSC. pt a little down and expressing frustrations with these unexpected issues and not having help if discharged at a certain day/time.
[2018-12-01] MEDS: POTASSIUM CHLORIDE 20 MEQ/15 ML UDC 40 MEQ PO (03:02)
[2018-12-01] MEDS: MAGNESIUM SULFATE 2 GM/50 ML PIGGYBACK IV (03:07)
[2018-12-01] MEDS: SODIUM CHLORIDE 0.9% 500 ML 1000 ML IV (03:08)
[2018-12-01 06:10] LABS: Hematocrit 24.1 % (36-46); Hemoglobin 7.9 g/dL (12.0-16.0)
[2018-12-01] MEDS: ACETAMINOPHEN 325 MG TABLET 650 MG PO ×3 (07:39→18:37)
[2018-12-01] MEDS: ENOXAPARIN 40 MG/0.4 ML SYRINGE SUBCUT (07:39)
[2018-12-01] MEDS: FERROUS SULFATE 325 MG TABLET PO (07:40)
[2018-12-01] MEDS: SODIUM CHLORIDE 0.9% 1,000 ML 100 ML IV ×2 (07:40→17:12)
[2018-12-01] MEDS: ASCORBIC ACID 500 MG TABLET PO (07:40)
--- NOTE | 2018-12-01 08:05 | PC.NURSE ---
Addendum entered by Bernadine Galvan R.N. 12/01/18 09:37: Teds placed to BLE per VVO from Maikel ALCARAZ Original Note: Addendum entered by Bernadine Galvan R.N. 12/01/18 08:08: Right hip dressing is CDI, +CMS and brisk cap refill. Original Note: Day Shift Pt is A&O able to make needs known. Up to BSC to void, denies any dizziness or light headed. Denies any chest pain, SOB and h/a. HR is RR slightly tachy 110. Rates pain 1-2/10 while at rest and medicated with tylenol. Educated and instructions given and using I.S. at bedside. Call light within reach.
--- NOTE | 2018-12-01 09:39 | P.PN_ITS ---
Subjective Date Patient Seen: 12/01/18 Time Patient Seen: 09:35 Interval history: Hospital day 3, postop day 2 following right anterior total hip arthroplasty by Dr. Proctor. Patient is progressing slowly. She has had limited physical therapy. Patient has had orthostatic hypotension in the last 2448 hr with postoperative anemia. She was seen by hospitalist for evaluation. H&H this morning 7.9/24.1. She has received IV fluids. Patient lives alone. She does have some stairs where she lives. Discussion done regarding discharge to home with possible home health versus SNF. Patient states she has considered [facility] if needed. Exam Vital Signs (past 8 hours): - 12/01/18 05:15 12/01/18 08:34 Temperature 98.9 F 98.1 F Pulse Rate 115 H 108 H Respiratory Rate 16 18 Blood Pressure 124/55 L 126/57 L Pulse Oximetry 91 95 Oxygen Delivery Method Room Air Narrative Exam Narrative: Alert, oriented in no acute distress sitting in chair. Legs. Aquacel dressing to right anterior hip is dry without drainage or inflammation. No calf pain or swelling. Pulses symmetrical. Objective Labs Result Diagrams: 12/01/18 05:50 11/30/18 22:30 Labs: Laboratory Results - last 24 hr 11/30/18 11/30/18 11/30/18 15:28 22:30 22:30 WBC 9.2 RBC 2.79 L Hgb 9.2 L 8.3 L Hct 28.3 L 25.3 L MCV 90.6 MCH 29.8 MCHC 32.9 RDW 13.4 Plt Count 164 Neut % (Auto) 76.0 H Lymph % (Auto) 11.3 L Mccone % (Auto) 11.8 Eos % (Auto) 0.4 L Baso % (Auto) 0.5 Neut # (Auto) 7000 Lymph # (Auto) 1000 L Mccone # (Auto) 1100 H Eos # (Auto) 0 Baso # (Auto) 0 Sodium 136 L Potassium 3.7 Chloride 104 Carbon Dioxide 27 BUN 20 H Creatinine 0.90 Estimated GFR > 60.0 BUN/Creatinine Ratio 22.2 H Glucose 113 H Calcium 7.8 L Magnesium 1.8 Total Bilirubin 0.3 AST 31 ALT 27 Alkaline Phosphatase 37 L Total Protein 5.0 L Albumin 2.6 L Globulin 2.4 Albumin/Globulin Ratio 1.1 12/01/18 05:50 WBC RBC Hgb 7.9 L Hct 24.1 L MCV MCH MCHC RDW Plt Count Neut % (Auto) Lymph % (Auto) Mccone % (Auto) Eos % (Auto) Baso % (Auto) Neut # (Auto) Lymph # (Auto) Mccone # (Auto) Eos # (Auto) Baso # (Auto) Sodium Potassium Chloride Carbon Dioxide BUN Creatinine Estimated GFR BUN/Creatinine Ratio Glucose Calcium Magnesium Total Bilirubin AST ALT Alkaline Phosphatase Total Protein Albumin Globulin Albumin/Globulin Ratio Assessment & Plan Post-op Postoperative Procedures Operation Date: 11/29/18 14:15 Actual Procedures Side Surgeon p Total Hip Arthroplasty-Anterior Right Ulisses Proctor MD Plan: Will recheck hemogram in the morning and wait on any blood transfusion at this time. She will be seen by hospitalist today for other medical issues. Patient will hopefully work with PT more today. Anticipate possible discharge home tomorrow if stable with possible home health PT versus discharge to SNF for a few days if she is not progressing. Quality VTE Deep Vein Thrombosis/Pulmonary Embolism Present on Admission: No
--- NOTE | 2018-12-01 14:34 | CM.DPNOTE ---
Addendum entered by DEB Yeung 12/03/18 11:52: Late Entry: [facility] Notified of pt's departure. Pt are and agreeable to DCP, IMM reviewed verbal obtained. Pt eager to get home w/ HH. Faxed DC summary. JW Original Note: Reviewed DCP w/ pt and her dtr Aysha per their request. Pt asks about Home Health, this FOUR CORNER FORMER MACHINE OPERATOR reviewed HH service and reviewed Medicare Choice List. Pt has no agency preference but would like a HH RN/PT to check in with her this weekend after DC, if possible. Dtr concerned about pt managing the stairs into her home. This FOUR CORNER FORMER MACHINE OPERATOR suggested pt and dtr review questions and concerns w/ therapy team on . Pt is hopeful to complete her stair training w/in the next 24-48 hrs. Pt's progress w/ PT has been slowed by Orthostatic Hypotension; pt eager to return home but dtr and this FOUR CORNER FORMER MACHINE OPERATOR encouraging pt to be patient today and to focus on getting a safe DCP in place to aid in recovery. Faxed new referral to [facility] for HH PT/RN, will f/u on referral . F2F and H+P/ prog note faxed. DEB Yeung
--- NOTE | 2018-12-01 14:40 | PT.IPTN ---
Current Diagnoses Unilateral primary osteoarthritis, right hip (11/29/18) Surgery Performed Operation Date: 11/29/18 14:15 Actual Procedures p Total Hip Arthroplasty-Anterior(Right) - Ulisses Proctor MD Physical Therapy Treatment Note M2 PT-IP Current Condition Start: 11/30/18 12:51 Freq: NEEDED Status: Active Protocol: Document 11/30/18 10:25 AB (Rec: 11/30/18 13:08 AB [id number]) Physical Therapy Current Condition Current Condition Evaluation Date 11/30/18 Treatment Diagnosis s/p R ANDREI anterior approach; difficulty in walking Onset Date 11/29/18 Precautions Anterior Hip Precautions No Hip Extension No Hip External Rotation Other Precautions falls Weight Bearing Status Weight Bearing Status Weight Bear as Tolerated M3 PT-IP Subjective Start: 11/30/18 12:51 Freq: NEEDED Status: Active Protocol: Document 12/01/18 14:40 GGD (Rec: 12/01/18 16:08 GGD [id number]) Subjective Physical Therapy Visit Type Type Treatment Note Visit Start Time 14:00 Visit Stop Time 14:40 Total Visit Minutes 40 Number of GARDEN CONSULTANT Visits 3 Physical Therapy Visit Comments Patient Comments Pt states that she needs to use the bathroom. Therapy Pain Assessment Pain When Pain Assessed At Rest Pain Present Pain Present Pain Reported M4 PT-IP Mobility and Gait Start: 11/30/18 12:51 Freq: NEEDED Status: Active Protocol: Document 12/01/18 14:40 GGD (Rec: 12/01/18 16:08 GGD [id number]) PT-Bed Mobility Assessment Sit to Supine Sit to Supine Minimal Assistance 1 Person Assistance Scooting Scooting to Edge of Bed Standby Assistance PT-Transfer Assessment Sit to and From Stand Sit to and from Stand Contact Guard Assistance Use of Upper Extremities Equipment Transfer Assistive Device Gait Belt Front Wheeled Walker Transfers Transfer Destination Bed Toilet Transfer Ability Level of Assist Minimal Assistance 1 Person Assistance Use of Upper Extremities Gait Assessment Gait Gait Assistance Required: Contact Guard Assist Distance (Feet) 160 Able to Maintain Weight Bearing Status Yes During Gait Assistive Devices Assistive Device Front Wheeled Walker Orthotic/Prosthetic Devices or Brace: No Gait Deviations General Gait Pattern Antalgic Decreased Stride Length Decreased Feet Clearance Factors Limiting Gait Function Factors Limiting Gait Function Decreased Strength Limited Range of Motion Pain M5 PT-IP Objective Assessments Start: 11/30/18 12:51 Freq: NEEDED Status: Active Protocol: Document 11/30/18 10:25 AB (Rec: 11/30/18 13:08 AB [id number]) Orientation Orientation/Cognition Level of Alertness Alert Orientation Name Age Birthday Month Date Year Day of Week Place Situation Safety Awareness Decreased Safety Awareness Memory Description Short Term Impaired Alf Impaired Gross Range of Motion Lower Extremity ROM Assessment Right Impaired Strength Lower Extremity Strength Assessment Right Impaired Knee 3-/5 M6 PT-IP Treatment Start: 11/30/18 12:51 Freq: NEEDED Status: Active Protocol: Document 12/01/18 14:40 GGD (Rec: 12/01/18 16:08 GGD [id number]) Physical Therapy Treatment Exercises Exercises Ankle Pumps Gluteal Sets Quad Sets Heel Slides M7 PT-IP Assessment and Plan Start: 11/30/18 12:51 Freq: NEEDED Status: Active Protocol: Document 12/01/18 14:40 GGD (Rec: 12/01/18 16:08 GGD [id number]) PT Summary Assessment and Plan Summary Assessment Summary Pt improving slowly with mobility. She need mod cues for bed mobility and use of belt to assist right LE. Pt needs stair training before D/C. Frequency of Treatment Frequency Of Treatment Twice a Day Treatment Plan Physical Therapy Treatment Plan Bed Mobility Training Transfer Training Gait Training Therapeutic Exercise Balance Retraining Post Op Education Discharge Planning Hot or Cold Pack Neuromuscular Re-ed Coordination Retraining Manual Therapy Recommendations To Nursing Amount of Assist Needed 1 Person Assist Discharge Recommendations PT Discharge Recommendations Home with Assistance Home Health
--- NOTE | 2018-12-01 16:29 | PC.NURSE ---
Orthostatic vital signs at beginning of shift: Lying 137/63 HR 99, Sitting 124/47 HR 104, Standing 125/48 HR 107.
--- NOTE | 2018-12-01 18:25 | PC.NURSE ---
Pt is alert and orientated. Pedal pulses strong, pt is ambulating in chair and has been advised about IS. Orthostatic pressures have been 137/63, 124/47, 125/48/, Denies pain, taking Tylenol Q6hrs. Lungs are clear.
--- NOTE | 2018-12-01 19:34 | PM.PN.1 ---
Subjective Interval history: The patient is resting in bedside chair comfortably. She denies lightheadedness or dizziness. She was up ambulating with physical therapy without orthostasis. Last orthostatic blood pressure measurements normal with sitting 108/49 and standing 106/46. She denies headache, chest pain, shortness of breath, abdominal pain, nausea, vomiting, fever, chills, dysuria, diarrhea or constipation. She is up ambulating with assistance and physical therapy. Exam Vital Signs (past 8 hours): - 12/01/18 15:50 12/01/18 17:55 Temperature 98.4 F Pulse Rate 104 H Pulse Rate [Orthostatic Lying] 99 H Pulse Rate [Orthostatic Sitting] 104 H Pulse Rate [Orthostatic Standing] 107 H Respiratory Rate 18 Blood Pressure 129/47 L Blood Pressure [Orthostatic Lying] 137/63 Blood Pressure [Orthostatic Sitting] 124/47 L Blood Pressure [Orthostatic Standing] 125/48 L Pulse Oximetry 97 Oxygen Delivery Method Room Air Narrative Exam Narrative: General: Elderly female sitting in bedside chair and in no acute distress, appears younger than stated age, well-developed, well-nourished, appropriately interactive. HEENT: Normocephalic, atraumatic. External ears without defect. Pupils equal, round, and reactive to light. Anicteric sclerae, moist conjunctivae, and no lid lag. Neck: Supple with full range of motion. No lymphadenopathy or thyromegaly. Cardiovascular: Regular rate and rhythm without murmurs, rubs, or gallops appreciated Pulmonary: Clear to auscultation bilaterally without crackles, wheezes, or rhonchi. Normal respiratory effort with no use of accessory muscles. Abdomen: Soft, bowel sounds present, nontender, nondistended. No hepatosplenomegaly or masses appreciated. Extremities: No clubbing, cyanosis, or edema. Right hip with bandage in place c/d/i. Skin: Normal temperature, turgor, and texture; no rash, ulcers, or subcutaneous nodules appreciated. Neurological: Cranial nerves grossly intact. Psychiatric: Normal mood and affect. Alert and oriented to person, place, and time. Objective Labs Result Diagrams: 12/01/18 05:50 11/30/18 22:30 Labs: Laboratory Results - last 24 hr 11/30/18 11/30/18 12/01/18 22:30 22:30 05:50 WBC 9.2 RBC 2.79 L Hgb 8.3 L 7.9 L Hct 25.3 L 24.1 L MCV 90.6 MCH 29.8 MCHC 32.9 RDW 13.4 Plt Count 164 Neut % (Auto) 76.0 H Lymph % (Auto) 11.3 L [place] % (Auto) 11.8 Eos % (Auto) 0.4 L Baso % (Auto) 0.5 Neut # (Auto) 7000 Lymph # (Auto) 1000 L [place] # (Auto) 1100 H Eos # (Auto) 0 Baso # (Auto) 0 Sodium 136 L Potassium 3.7 Chloride 104 Carbon Dioxide 27 BUN 20 H Creatinine 0.90 Estimated GFR > 60.0 BUN/Creatinine Ratio 22.2 H Glucose 113 H Calcium 7.8 L Magnesium 1.8 Total Bilirubin 0.3 AST 31 ALT 27 Alkaline Phosphatase 37 L Total Protein 5.0 L Albumin 2.6 L Globulin 2.4 Albumin/Globulin Ratio 1.1 Assessment & Plan Assessment & Plan narrative: Acute symptomatic orthostatic hypotension, -Likely secondary to acute blood loss and volume depletion. Also possibly medication induced. -Received 1L NS bolus, then continued current maintenance IVF. -I/O monitoring, check post void residual. -Elastic / thigh high stockings to reduce venous pooling. -Treat fever, minimize opiate use -Replete electrolytes as necessary. Magnesium and potassium were low normal therefore repleted. Fever, new onset , not present on admission. Resolved. -POD #1, mild temp elevation to 101.2F. Appropriate physiologic response of post operative state. -No s/s of SIRS or sepsis, continue to monitor for s/s of infection. -Tylenol 650 mg Q6H prn. Hypovolemia, present on admission. Resolving. -Received 1L NS bolus, then resumed maintenance IVF. Normocytic anemia, unclear chronicity but likely acute on chronic, present on admission. Stable. -Acute portion likely secondary to blood loss and possibly hemodilution. Chronic portion likely secondary to iron deficiency anemia. Unclear baseline hemoglobin and hematocrit but likely acute on chronic. -No overt bleeding. Hemoglobin hematocrit stable and trending down. -Continue iron supplementation. Acute post-operative pain, not present admission. received multiple medications with SKIVER UPPERS OR LININGS sequela in the past 24 hr. -Consider Toradol or Tylenol 975 Q8H. -Hold off or minimize use of opioids until orthostasis resolves. Essential hypertension, controlled chronic condition prior to admission. 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 -Trend BP. Thank you for consulting our services will sign off at this time. Please do not hesitate to call if you need further assistance. Quality VTE Deep Vein Thrombosis/Pulmonary Embolism Present on Admission: No
--- NOTE | 2018-12-01 19:46 | P.PN_ITS ---
Subjective Interval history: The patient is resting in bedside chair comfortably. She denies lightheadedness or dizziness. She was up ambulating with physical therapy without orthostasis. Last orthostatic blood pressure measurements normal with sitting 108/49 and standing 106/46. She denies headache, chest pain, shortness of breath, abdominal pain, nausea, vomiting, fever, chills, dysuria, diarrhea or constipation. She is up ambulating with assistance and physical therapy. Exam Vital Signs (past 8 hours): - 12/01/18 15:50 12/01/18 17:55 Temperature 98.4 F Pulse Rate 104 H Pulse Rate [Orthostatic Lying] 99 H Pulse Rate [Orthostatic Sitting] 104 H Pulse Rate [Orthostatic Standing] 107 H Respiratory Rate 18 Blood Pressure 129/47 L Blood Pressure [Orthostatic Lying] 137/63 Blood Pressure [Orthostatic Sitting] 124/47 L Blood Pressure [Orthostatic Standing] 125/48 L Pulse Oximetry 97 Oxygen Delivery Method Room Air Narrative Exam Narrative: General: Elderly female sitting in bedside chair and in no acute distress, appears younger than stated age, well-developed, well-nourished, appropriately interactive. HEENT: Normocephalic, atraumatic. External ears without defect. Pupils equal, round, and reactive to light. Anicteric sclerae, moist conjunctivae, and no lid lag. Neck: Supple with full range of motion. No lymphadenopathy or thyromegaly. Cardiovascular: Regular rate and rhythm without murmurs, rubs, or gallops appreciated Pulmonary: Clear to auscultation bilaterally without crackles, wheezes, or rhonchi. Normal respiratory effort with no use of accessory muscles. Abdomen: Soft, bowel sounds present, nontender, nondistended. No hepatosplenomegaly or masses appreciated. Extremities: No clubbing, cyanosis, or edema. Right hip with bandage in place c/d/i. Skin: Normal temperature, turgor, and texture; no rash, ulcers, or subcutaneous nodules appreciated. Neurological: Cranial nerves grossly intact. Psychiatric: Normal mood and affect. Alert and oriented to person, place, and time. Objective Labs Result Diagrams: 12/01/18 05:50 11/30/18 22:30 Labs: Laboratory Results - last 24 hr 11/30/18 11/30/18 12/01/18 22:30 22:30 05:50 WBC 9.2 RBC 2.79 L Hgb 8.3 L 7.9 L Hct 25.3 L 24.1 L MCV 90.6 MCH 29.8 MCHC 32.9 RDW 13.4 Plt Count 164 Neut % (Auto) 76.0 H Lymph % (Auto) 11.3 L [place] % (Auto) 11.8 Eos % (Auto) 0.4 L Baso % (Auto) 0.5 Neut # (Auto) 7000 Lymph # (Auto) 1000 L [place] # (Auto) 1100 H Eos # (Auto) 0 Baso # (Auto) 0 Sodium 136 L Potassium 3.7 Chloride 104 Carbon Dioxide 27 BUN 20 H Creatinine 0.90 Estimated GFR > 60.0 BUN/Creatinine Ratio 22.2 H Glucose 113 H Calcium 7.8 L Magnesium 1.8 Total Bilirubin 0.3 AST 31 ALT 27 Alkaline Phosphatase 37 L Total Protein 5.0 L Albumin 2.6 L Globulin 2.4 Albumin/Globulin Ratio 1.1 Assessment & Plan Assessment & Plan narrative: Acute symptomatic orthostatic hypotension, -Likely secondary to acute blood loss and volume depletion. Also possibly medication induced. -Received 1L NS bolus, then continued current maintenance IVF. -I/O monitoring, check post void residual. -Elastic / thigh high stockings to reduce venous pooling. -Treat fever, minimize opiate use -Replete electrolytes as necessary. Magnesium and potassium were low normal therefore repleted. Fever, new onset , not present on admission. Resolved. -POD #1, mild temp elevation to 101.2F. Appropriate physiologic response of post operative state. -No s/s of SIRS or sepsis, continue to monitor for s/s of infection. -Tylenol 650 mg Q6H prn. Hypovolemia, present on admission. Resolving. -Received 1L NS bolus, then resumed maintenance IVF. Normocytic anemia, unclear chronicity but likely acute on chronic, present on admission. Stable. -Acute portion likely secondary to blood loss and possibly hemodilution. Chronic portion likely secondary to iron deficiency anemia. Unclear baseline hemoglobin and hematocrit but likely acute on chronic. -No overt bleeding. Hemoglobin hematocrit stable and trending down. -Continue iron supplementation. Acute post-operative pain, not present admission. received multiple medications with MIXER HELPER sequela in the past 24 hr. -Consider Toradol or Tylenol 975 Q8H. -Hold off or minimize use of opioids until orthostasis resolves. Essential hypertension, controlled chronic condition prior to admission. 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 -Trend BP. Thank you for consulting our services will sign off at this time. Please do not hesitate to call if you need further assistance. Quality VTE Deep Vein Thrombosis/Pulmonary Embolism Present on Admission: No
[2018-12-02] MEDS: ACETAMINOPHEN 325 MG TABLET 650 MG PO ×2 (00:39→06:49)
--- NOTE | 2018-12-02 00:55 | PC.NURSE ---
Addendum entered by Megan Null R.N. 12/02/18 06:57: Denies pain but requesting Tylenol for continued pain management. Original Note: Addendum entered by Megan Null R.N. 12/02/18 05:38: Weepy this morning and relates she misses her spouse who 3 years ago. States it's so hard to do this without him here. Allowed to vent. Noted patient is unable to lift right leg up off bed, but CMS is intact. Original Note: Addendum entered by Megan Null R.N. 12/02/18 03:28: Correction of previous documentation: Orthostatic BP drops with sitting/standing and HR increases Original Note: Patient is alert and oriented. Breath sounds CTA with RA sat of 95%. HRR but tachy at 116 bpm apical. Denies nausea. BT present and abdomen is soft; reports she had BM yesterday. Denies dysuria, frequency, urgency or incontinence. Assisted to reposition onto right side. Assisted in/out of bed (to move right leg) but walked to bathroom with walker and SBA. Dressing to anterior right hip is CDI. Complains of 3/10 pain so medicated with Tylenol (did not want anything stronger). CMS is intact. Wearing bilateral ALIZA stockings and did have SCD's on at shift change but now requesting they be left off for the night; reminded to ankle wave. Fall risk score is high and bed alarm is activated. Orthostatic vitals show drop in BP and elevation in HR when going from lying to sitting position but not from sitting to standing position.
[2018-12-02 03:00] VITALS: BP 140/70; PULSE 111; RESP 16; TEMP 36.7; O2SAT 92
[2018-12-02] MEDS: SODIUM CHLORIDE 0.9% 1,000 ML 100 ML IV (03:03)
[2018-12-02 05:48] LABS: Hematocrit 23.4 % (36-46); Hemoglobin 7.7 g/dL (12.0-16.0); Mean Corpuscular HGB Conc 32.9 % (30-36); Mean Corpuscular Hemoglobin 29.9 PG (26-34); Mean Corpuscular Volume 90.9 fL (80-100); Platelet Count 169 X10^3/uL (150-400); Red Blood Cell Count 2.57 X10^6/uL (4.0-5.2); Red Cell Distribution Width 13.8 % (11.6-14.8); White Blood Cell Count 7.5 X10^3/uL (4.5-11.0)
[2018-12-02 08:00] VITALS: BP 134/77; PULSE 110; RESP 18; TEMP 36.6; O2SAT 96
[2018-12-02] MEDS: ENOXAPARIN 40 MG/0.4 ML SYRINGE SUBCUT (08:24)
[2018-12-02] MEDS: FERROUS SULFATE 325 MG TABLET PO (08:25)
[2018-12-02] MEDS: ASCORBIC ACID 500 MG TABLET PO (08:25)
--- NOTE | 2018-12-02 08:34 | PM.DS.1 ---
History of Present Illness Date Patient Seen: 12/02/18 Time Patient Seen: 08:34 Chief complaint: [address]50 Right Total Hip ArthoplastyCOPAY $720.00 Narrative: hospital day 4, postop day 3 following right anterior total hip arthroplasty. Patient has been stable orthopedically. She did have some orthostatic hypotension initially. She was evaluated by hospitalist with adjustments made in her medications and fluid level. She has had some progressive postoperative anemia but her postural hypotension has stabilized. Dr. Proctor saw the patient last night and they discussed blood transfusion and patient did not want to have transfusion unless absolutely necessary. She states she is feeling much better today. Patient is desiring to go home today. She has been set up with [facility] for the 1st 1-2 weeks at home and then she will transition to [facility] and [place]. She has a [facility] patient and has postop pain medication at home. Discharge Providers Date of admission: 11/29/18 12:46 Discharge Date: 12/02/18 Consults: 11/29/18 17:39 Consult to Discharge Planning Routine Comment: Consult to Physical Therapy Evaluate & Treat Comment: Physician Instructions: post op ANDREI protocol Consult to Respiratory Therapy Evaluate & Treat Comment: Physician Instructions: Evaluate and treat Discharge provider: Roberto Carlos Ko PA-C Summary Discharge Diagnosis: 1. Status post right anterior total hip arthroplasty 2. postop anemia secondary to blood loss and dilution Hospital Course: patient brought to hospital on 11/29/2018 for above noted surgery. She remained stable postoperatively except for some postural hypotension. Did have some progressive postoperative anemia with her final H&H 7.7/23.4 on postop day 3. patient did not want to have blood transfusion. Her postural vital signs remained stable. She does note some weakness with the right leg left. Patient discharged home on postop day 3 and will have home health PT for the 1st 1-2 weeks. Status at Discharge Cognitive/behavioral status at discharge: oriented Functional status at discharge: uses cane/walker Overall status at discharge: patient is progressing back to baseline Time Spent with Patient Less than 30 minutes Exam Vital Signs (past 8 hours): - 12/02/18 03:00 Temperature 98.1 F Pulse Rate 111 H Respiratory Rate 16 Blood Pressure 140/70 Pulse Oximetry 92 Oxygen Delivery Method Room Air Narrative Exam Narrative: Legs. Aquacel dressing to right anterior hip is dry without drainage or inflammation. No calf pain or swelling. Pulses symmetrical. Patient does have quad weakness with leg lift on the right. Objective Labs Result Diagrams: 12/02/18 05:13 11/30/18 22:30 Labs: Laboratory Results - last 24 hr 12/02/18 05:13 WBC 7.5 RBC 2.57 L Hgb 7.7 L Hct 23.4 L MCV 90.9 MCH 29.9 MCHC 32.9 RDW 13.8 Plt Count 169 Discharge Plan Discharge Plan Patient Disposition: Home Health Service Transfer to: [facility] Discharge comment: Postop right anterior total hip arthroplasty. Maintain anterior total hip arthroplasty protocol x6 weeks postop. Patient did have postoperative anemia which has stabilized. She is on iron and vitamin-C supplement. She will do [facility] for the 1st 1-2 weeks and then transition to [facility] in [place]. She will use Lovenox injection x7 days. Discharge Med Rec/Prescriptions Prescriptions: New acetaminophen 325 mg Tablet 650 mg PO Q6HR PRN (Reason: Fever) Qty: 30 RF: 0 ascorbic acid (vitamin C) [Vitamin C] 500 mg Tablet 500 mg PO DAILY Qty: 60 RF: 0 ferrous sulfate 325 mg (65 mg iron) Tablet 325 mg PO DAILY Qty: 60 RF: 0 enoxaparin [Lovenox] 40 mg/0.4 mL Syringe 40 mg subcut DAILY Qty: 7 RF: 0 Continued atorvastatin 10 mg Tablet 10 mg PO BEDTIME RF: 0 atenolol 25 mg Tablet 25 mg PO BEDTIME RF: 0 Provider Discharge Instructions Diet: Diet as Tolerated Activity: ambulate as tolerated. Use walker as needed. Cold/Heat Therapy: Ice pack to right hip area as needed. Other treatments: Patient to use Lovenox until gone. Patient take iron and vitamin C twice daily x1 month for anemia. Skin/Wound/Dressing Care Report to your healthcare provider any signs of infection, such as:: chills, fever, night sweats, increased pain, unusual drainage and unusual redness Dressing: Keep Aquacel dressing in place until postop visit. Visit Report/Discharge Packet Instructions: DI for Hip Replacement Discharge Data Attending Provider: Ulisses Proctor Admit Date/Time: 11/29/18 12:46 Quality VTE Deep Vein Thrombosis/Pulmonary Embolism Present on Admission: No
--- NOTE | 2018-12-02 08:42 | P.DS_ITS ---
History of Present Illness Date Patient Seen: 12/02/18 Time Patient Seen: 08:34 Chief complaint: 14274 Right Total Hip ArthoplastyCOPAY $720.00 Narrative: hospital day 4, postop day 3 following right anterior total hip arthroplasty. Patient has been stable orthopedically. She did have some orthostatic hypotension initially. She was evaluated by hospitalist with adjustments made in her medications and fluid level. She has had some progressive postoperative anemia but her postural hypotension has stabilized. Dr. Proctor saw the patient last night and they discussed blood transfusion and patient did not want to have transfusion unless absolutely necessary. She states she is feeling much better today. Patient is desiring to go home today. She has been set up with [facility] PT for the 1st 1-2 weeks at home and then she will transition to [facility] and [place]. She has a [facility] patient and has postop pain medication at home. Discharge Providers Date of admission: 11/29/18 12:46 Discharge Date: 12/02/18 Consults: 11/29/18 17:39 Consult to Discharge Planning Routine Comment: Consult to Physical Therapy Evaluate & Treat Comment: Physician Instructions: post op ANDREI protocol Consult to Respiratory Therapy Evaluate & Treat Comment: Physician Instructions: Evaluate and treat Discharge provider: Roberto Carlos Ko PA-C Summary Discharge Diagnosis: 1. Status post right anterior total hip arthroplasty 2. postop anemia secondary to blood loss and dilution Hospital Course: patient brought to hospital on 11/29/2018 for above noted surgery. She remained stable postoperatively except for some postural hypotension. Did have some progressive postoperative anemia with her final H&H 7.7/23.4 on postop day 3. patient did not want to have blood transfusion. Her postural vital signs remained stable. She does note some weakness with the right leg left. Patient discharged home on postop day 3 and will have home health PT for the 1st 1-2 weeks. Status at Discharge Cognitive/behavioral status at discharge: oriented Functional status at discharge: uses cane/walker Overall status at discharge: patient is progressing back to baseline Time Spent with Patient Less than 30 minutes Exam Vital Signs (past 8 hours): - 12/02/18 03:00 Temperature 98.1 F Pulse Rate 111 H Respiratory Rate 16 Blood Pressure 140/70 Pulse Oximetry 92 Oxygen Delivery Method Room Air Narrative Exam Narrative: Legs. Aquacel dressing to right anterior hip is dry without drainage or inflammation. No calf pain or swelling. Pulses symmetrical. Patient does have quad weakness with leg lift on the right. Objective Labs Result Diagrams: 12/02/18 05:13 11/30/18 22:30 Labs: Laboratory Results - last 24 hr 12/02/18 05:13 WBC 7.5 RBC 2.57 L Hgb 7.7 L Hct 23.4 L MCV 90.9 MCH 29.9 MCHC 32.9 RDW 13.8 Plt Count 169 Discharge Plan Discharge Plan Patient Disposition: Home Health Service Transfer to: [facility] Discharge comment: Postop right anterior total hip arthroplasty. Maintain anterior total hip arthroplasty protocol x6 weeks postop. Patient did have postoperative anemia which has stabilized. She is on iron and vitamin-C supplement. She will do [facility] for the 1st 1-2 weeks and then transition to [facility] in [place]. She will use Lovenox injection x7 days. Discharge Med Rec/Prescriptions Prescriptions: New acetaminophen 325 mg Tablet 650 mg PO Q6HR PRN (Reason: Fever) Qty: 30 RF: 0 ascorbic acid (vitamin C) [Vitamin C] 500 mg Tablet 500 mg PO DAILY Qty: 60 RF: 0 ferrous sulfate 325 mg (65 mg iron) Tablet 325 mg PO DAILY Qty: 60 RF: 0 enoxaparin [Lovenox] 40 mg/0.4 mL Syringe 40 mg subcut DAILY Qty: 7 RF: 0 Continued atorvastatin 10 mg Tablet 10 mg PO BEDTIME RF: 0 atenolol 25 mg Tablet 25 mg PO BEDTIME RF: 0 Provider Discharge Instructions Diet: Diet as Tolerated Activity: ambulate as tolerated. Use walker as needed. Cold/Heat Therapy: Ice pack to right hip area as needed. Other treatments: Patient to use Lovenox until gone. Patient take iron and vitamin C twice daily x1 month for anemia. Skin/Wound/Dressing Care Report to your healthcare provider any signs of infection, such as:: chills, fever, night sweats, increased pain, unusual drainage and unusual redness Dressing: Keep Aquacel dressing in place until postop visit. Visit Report/Discharge Packet Instructions: DI for Hip Replacement Discharge Data Attending Provider: Ulisses Proctor Admit Date/Time: 11/29/18 12:46 Quality VTE Deep Vein Thrombosis/Pulmonary Embolism Present on Admission: No
--- NOTE | 2018-12-02 09:30 | PT.IPTN ---
Current Diagnoses Unilateral primary osteoarthritis, right hip (11/29/18) Surgery Performed Operation Date: 11/29/18 14:15 Actual Procedures p Total Hip Arthroplasty-Anterior(Right) - Ulisses Proctor MD Physical Therapy Treatment Note M2 PT-IP Current Condition Start: 11/30/18 12:51 Freq: NEEDED Status: Discharge Protocol: Document 11/30/18 10:25 AB (Rec: 11/30/18 13:08 AB [email or web address]) Physical Therapy Current Condition Current Condition Evaluation Date 11/30/18 Treatment Diagnosis s/p R ANDREI anterior approach; difficulty in walking Onset Date 11/29/18 Precautions Anterior Hip Precautions No Hip Extension No Hip External Rotation Other Precautions falls Weight Bearing Status Weight Bearing Status Weight Bear as Tolerated M3 PT-IP Subjective Start: 11/30/18 12:51 Freq: NEEDED Status: Discharge Protocol: Document 12/02/18 09:30 GGD (Rec: 12/02/18 11:46 GGD [email or web address]) Subjective Physical Therapy Visit Type Type Treatment Note Visit Start Time 09:00 Visit Stop Time 09:30 Total Visit Minutes 30 Number of PURIFICATION DIRECTOR Visits 4 Physical Therapy Visit Comments Patient Comments Pt states she is ready to go home. Therapy Pain Assessment Pain When Pain Assessed At Rest Pain Present Pain Present Pain Reported M4 PT-IP Mobility and Gait Start: 11/30/18 12:51 Freq: NEEDED Status: Discharge Protocol: Document 12/02/18 09:30 GGD (Rec: 12/02/18 11:46 GGD [email or web address]) PT-Transfer Assessment Sit to and From Stand Sit to and from Stand Contact Guard Assistance Use of Upper Extremities Equipment Transfer Assistive Device Gait Belt Front Wheeled Walker Transfers Transfer Destination Bed Transfer Ability Level of Assist Minimal Assistance 1 Person Assistance Use of Upper Extremities Gait Assessment Gait Gait Assistance Required: Contact Guard Assist Distance (Feet) 100 Able to Maintain Weight Bearing Status Yes During Gait Assistive Devices Assistive Device Front Wheeled Walker Orthotic/Prosthetic Devices or Brace: No Gait Deviations General Gait Pattern Antalgic Decreased Stride Length Decreased Feet Clearance Factors Limiting Gait Function Factors Limiting Gait Function Decreased Strength Limited Range of Motion Pain Stair Climbing Assessment Evaluation Level of Assist On Stairs Contact Guard Assistance Devices Stair Climbing Assistive Devices Right Railing Technique/Endurance Stair Climbing Direction Ascend and Descend Stair Climbing Technique Step to Step Number of Steps Climbed 3 Query Text: Stair Climbing Set # Repetitions (reps) 2 M5 PT-IP Objective Assessments Start: 11/30/18 12:51 Freq: NEEDED Status: Discharge Protocol: Document 11/30/18 10:25 AB (Rec: 11/30/18 13:08 AB [email or web address]) Orientation Orientation/Cognition Level of Alertness Alert Orientation Name Age Birthday Month Date Year Day of Week Place Situation Safety Awareness Decreased Safety Awareness Memory Description Short Term Impaired Care Home Impaired Gross Range of Motion Lower Extremity ROM Assessment Right Impaired Strength Lower Extremity Strength Assessment Right Impaired Knee 3-/5 M6 PT-IP Treatment Start: 11/30/18 12:51 Freq: NEEDED Status: Discharge Protocol: Document 12/02/18 09:30 GGD (Rec: 12/02/18 11:46 GGD [email or web address]) Physical Therapy Treatment Exercises Exercises Ankle Pumps Gluteal Sets Quad Sets Heel Slides Education Education Provided Weight Bearing Status Post-Op Packet M7 PT-IP Assessment and Plan Start: 11/30/18 12:51 Freq: NEEDED Status: Discharge Protocol: Document 12/02/18 09:30 GGD (Rec: 12/02/18 11:46 GGD [email or web address]) PT Summary Assessment and Plan Summary Assessment Summary Pt improving with mobility. She was safe and stable with stairs and gait. She is safe for home D/C. Frequency of Treatment Frequency Of Treatment Twice a Day Treatment Plan Physical Therapy Treatment Plan Bed Mobility Training Transfer Training Gait Training Therapeutic Exercise Balance Retraining Post Op Education Discharge Planning Hot or Cold Pack Neuromuscular Re-ed Coordination Retraining Manual Therapy Recommendations To Nursing Amount of Assist Needed 1 Person Assist Discharge Recommendations PT Discharge Recommendations Home with Assistance Home Health
--- NOTE | 2018-12-02 10:49 | PC.NURSE ---
Pt cleared by PT for dc home. Showered, IV removed and given paperwork and scripts. Taken by wheelchair to ER entrance.
== END 2018-12-02 10:50 | disposition home health service (06) | DRG 470 ==
PROVIDERS: Nurse Practitioner Gerontology; Physician Assistant; Admitting Provider Orthopaedic Surgery; Visit Provider Orthopaedic Surgery
PROC: 0SR90JZ Replacement of Right Hip Joint with Synthetic Substitute, Open Approach (ICD-10-PCS; CPT 27130; principal; 2018-11-29 14:15)
DX: M16.11 Unilateral primary osteoarthritis, right hip (principal); D62 Acute posthemorrhagic anemia; E78.00 Pure hypercholesterolemia, unspecified; I10 Essential (primary) hypertension; D64.9 Anemia, unspecified; I95.1 Orthostatic hypotension; R11.2 Nausea with vomiting, unspecified; E86.1 Hypovolemia; R50.9 Fever, unspecified
CPT/HCPCS: 36415; 72170; 80053; 83735; 85014; 85018; 85025; 85027; 93005; 93010; 94760; 97110; 97116; 97162; 97530; C1776; J0690; J1650; J2250; J2405; J2704; J3010